=== PATIENT | male | born 1990 | race African-American/Black ===

== ENCOUNTER 2023-08-06 12:29 | Emergency (ER) | payer MEDICAID ==
[~2023-08-06] VITALS: Ht 180.3 cm; Wt 70.0 kg
[2023-08-06 12:41] VITALS: TEMP 99.1; O2SAT 98
[2023-08-06 15:00] VITALS: BP 139/106; PULSE 101; RESP 20
[2023-08-06] MEDS ORDERED: IBUPROFEN 600MG TABLET PO ONE (15:00)
[2023-08-06] MEDS ORDERED: TETANUS, DIPHTHERIA, PERTUSSIS VAC/PF 0.5ML (>10YR OLD) IM ONE (15:00)
[2023-08-06] MEDS ORDERED: CEPH500C2 MT (16:05)
[2023-08-06] MEDS ORDERED: SULF1TAB48 MT (16:05)
== END 2023-08-06 16:33 | disposition home or self-care (01) ==
LOC: ER 12:29
DX: L02.01 Cutaneous abscess of face (principal); I10 Essential (primary) hypertension
CPT/HCPCS: 10060; 90715; 99283